=== PATIENT | male | born 2000 | race Caucasian/White ===

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

== ENCOUNTER 2021-07-02 16:22 | Emergency (ER) | payer BC ==
[~2021-07-02] VITALS: Ht 195.6 cm; Wt 88.5 kg
== END 2021-07-02 18:33 | disposition home or self-care (01) ==
LOC: ER 16:22
DX: H53.8 Other visual disturbances (principal); H43.392 Other vitreous opacities, left eye
CPT/HCPCS: 99283; A9270